=== PATIENT | female | born 1960 | race Caucasian/White ===

== ENCOUNTER 2019-03-30 05:58 | Emergency (ER) | payer BC ==
[2019-03-30] MEDS ORDERED: SODIUM CHLORIDE 0.9% 500 ML 500 ML IV STA (06:21)
[2019-03-30 06:47] LABS: Basophils # (A) 0.1 k/uL (0-0.2); Basophils % (A) 1 %; Eosinophils # (A) 0.1 k/uL (0-0.7); Eosinophils % (A) 1 %; HCT 43.6 % (34.0-46.0); HGB 14.7 gm/dL (11.4-16.0); Lymphocytes # (A) 1.2 k/uL (1.0-4.8); Lymphocytes % (A) 9 %; MCH 30.9 pg (25.0-35.0); MCHC 33.6 g/dL (31.0-37.0); MCV 91.7 fL (80.0-100.0); Mean Platelet Volume 6.5; Monocytes # (A) 0.5 k/uL (0-1.0); Monocytes % (A) 4 %; Neutrophils # (A) 11.3 k/uL (1.3-7.7); Neutrophils % (A) 85 %; Platelet Count 242 k/uL (150-450); RBC 4.75 m/uL (3.80-5.40); RDW 12.7 % (11.5-15.5); WBC 13.2 k/uL (3.8-10.6)
--- NOTE | 2019-03-30 06:50 | ED ---
GI Bleed HPI - General Source: patient, RN notes reviewed Mode of arrival: ambulatory Limitations: no limitations <Brenden Rivas - Last Filed: 03/30/19 08:04> <Poly Beasley - Last Filed: 04/03/19 23:30> - General Chief complaint: GI Bleed Stated complaint: GI Bleed Time Seen by Provider: 03/30/19 06:04 - History of Present Illness Initial comments: 58-year-old female presents emergency Department with chief complaint of rectal bleeding. Patient states that she had a large amount of bowel movement last night states that she is constipated and then she started having diarrhea. Patient states after that it was all blood. Patient states she did have a painful bowel movement which was larger nature. She denies any known hemorrhoids. Patient states that she always goes back and forth between diarrhea and constipation. Patient has had a prior hysterectomy with appendectomy. Patient states she currently has mid abdominal pain. Patient is a pack pain. Patient denies any fever, chills, dysuria, hematuria. Patient had no prior colonoscopy. Patient denies any blood thinners including taking any as pirin or Plavix. (Brenden Rivas) - Related Data Home Medications Medication Instructions Recorded Confirmed Atenolol [Tenormin] 50 mg PO BID 03/30/19 03/30/19 Cyclobenzaprine [Flexeril] 5 mg PO DAILY 03/30/19 03/30/19 Estradiol [Estradiol 0.05 MG Patch] 1 patch TRANSDERM SA 03/30/19 03/30/19 Hydrochlorothiazide [Hydrodiuril] 25 mg PO DAILY 03/30/19 03/30/19 Loratadine [Claritin] 10 mg PO DAILY 03/30/19 03/30/19 Melatonin 20 - 30 mg PO HS 03/30/19 03/30/19 Modafinil [Provigil] 100 mg PO QAM 03/30/19 03/30/19 Mometasone Furoate 1 applic TOPICAL DAILY PRN 03/30/19 03/30/19 Potassium Chloride [Klor-Con 10] 10 meq PO DAILY 03/30/19 03/30/19 Triamcinolone Acetonide [Nasacort] 1 spray EA NOSTRIL DAILY PRN 03/30/1903/30 traMADol HCL [Ultram] 50 mg PO QID PRN 03/30/19 03/30/19 Previous Rx's Medication Instructions Recorded Amoxicillin/Potassium Clav 1 tab PO Q12HR #14 tab 03/30/19 [Augmentin 875-125 Tablet] Allergies Allergy/AdvReac Type Severity Reaction Status Date / Time gluten AdvReac Unknown Verified 03/30/19 07:55 milk AdvReac GI UPSET Verified 03/30/19 07:55 Review of Systems ROS Other: All systems not noted in ROS Statement are negative. <Brenden Rivas - Last Filed: 03/30/19 08:04> ROS Other: All systems not noted in ROS Statement are negative. <Poly Beasley - Last Filed: 04/03/19 23:30> ROS Statement: Those systems with pertinent positive or pertinent negative responses have been documented in the HPI. Past Medical History Past Medical History: Hyperlipidemia, Hypertension History of Any Multi-Drug Resistant Organisms: None Reported Past Surgical History: Heart Catheterization, Hysterectomy Past Psychological History: No Psychological Hx Reported Smoking Status: Former smoker Past Alcohol Use History: None Reported Past Drug Use History: None Reported <Brenden Rivas - Last Filed: 03/30/19 08:04> General Exam Limitations: no limitations General appearance: alert, in no apparent distress Head exam: Present: atraumatic, normocephalic, normal inspection Neck exam: Present: normal inspection. Absent: tenderness, meningismus, lymphadenopathy Respiratory exam: Present: normal lung sounds bilaterally. Absent: respiratory distress, wheezes, rales, rhonchi, stridor Cardiovascular Exam: Present: regular rate, normal rhythm, normal heart sounds. Absent: systolic murmur, diastolic murmur, rubs, gallop, clicks GI/Abdominal exam: Present: soft, tenderness (Mild mid abdominal pain), normal bowel sounds. Absent: distended, guarding, rebound, rigid Back exam: Absent: CVA tenderness (R), CVA tenderness (L) Neurological exam: Present: alert, oriented X3 Skin exam: Present: warm, dry, intact, normal color. Absent: rash <Brenden Rivas - Last Filed: 03/30/19 08:04> Course Vital Signs 03/30/19 03/30/19 05:59 08:26 Temperature 97.4 F L 99.1 F Pulse Rate 87 59 L Respiratory 18 16 Rate Blood Pressure 152/81 156/93 O2 Sat by Pulse 99 97 Oximetry Medical Decision Making - Lab Data Result diagrams: 03/30/19 06:35 03/30/19 06:35 <Brenden Rivas - Last Filed: 03/30/19 08:04> - Lab Data Result diagrams: 03/30/19 06:35 03/30/19 06:35 <Poly Beasley - Last Filed: 04/03/19 23:30> - Medical Decision Making 58-year-old female presented for abdominal discomfort, rectal bleeding. The symptoms started last night. Hemoglobin is stable at this time at 14.7. Patient's pain is minimal. CT shows evidence of pain colitis. Patient has no concerning symptoms for C. diff no risk factors. Patient is afebrile. I did update patient results offered admission versus outpatient treatment. Patient prefers to be discharged she will follow-up with her primary care physician patient will be provided on-call GI and return parameters were discussed. (Brenden Rivas) I was available for consultation in the emergency department. The history and physical exam were done by the midlevel provider. I was consulted for this patients care. I reviewed the case with the midlevel provider and based on their presentation of the patient, I agree with the assessment, medical decision making and plan of care as documented. Chart was dictated using [employer] dictation software. Attempts were made to c orrect any dictation errors however some typographical errors may persist. (Poly Beasley) - Lab Data Lab Results 03/30/19 03/30/19 03/30/19 Range/Units 06:34 06:35 06:35 WBC 13.2 H (3.8-10.6) k/uL RBC 4.75 (3.80-5.40) m/uL Hgb 14.7 (11.4-16.0) gm/dL Hct 43.6 (34.0-46.0) % MCV 91.7 (80.0-100.0) fL MCH 30.9 (25.0-35.0) pg MCHC 33.6 (31.0-37.0) g/dL RDW 12.7 (11.5-15.5) % Plt Count 242 (150-450) k/uL Neutrophils % 85 % Lymphocytes % 9 % Monocytes % 4 % Eosinophils % 1 % Basophils % 1 % Neutrophils # 11.3 H (1.3-7.7) k/uL Lymphocytes # 1.2 (1.0-4.8) k/uL Monocytes # 0.5 (0-1.0) k/uL Eosinophils # 0.1 (0-0.7) k/uL Basophils # 0.1 (0-0.2) k/uL PT (9.0-12.0) sec INR (<1.2) APTT (22.0-30.0) sec Sodium 137 (137-145) mmol/L Potassium 3.5 (3.5-5.1) mmol/L Chloride 99 (98-107) mmol/L Carbon Dioxide 29 (22-30) mmol/L Anion Gap 9 mmol/L BUN 8 (7-17) mg/dL Creatinine 0.74 (0.52-1.04) mg/dL Est GFR (CKD-EPI)AfAm >90 (>60 ml/min/1.73 sqM) Est GFR (CKD-EPI)NonAf 90 (>60 ml/min/1.73 sqM) Glucose 131 H (74-99) mg/dL Plasma Lactic Acid Kahlil (0.7-2.0) mmol/L Calcium 10.2 (8.4-10.2) mg/dL Total Bilirubin 0.6 (0.2-1.3) mg/dL AST 22 (14-36) U/L ALT 28 (9-52) U/L Alkaline Phosphatase 78 (38-126) U/L Total Protein 7.8 (6.3-8.2) g/dL Albumin 4.6 (3.5-5.0) g/dL Amylase 65 (30-110) U/L Lipase 106 (23-300) U/L Urine Color Yellow Urine Appearance Cloudy H (Clear) Urine pH 7.0 (5.0-8.0) Ur Specific [place] 1.018 (1.001-1.035) Urine Protein Trace H (Negative) Urine Glucose (UA) Negative (Negative) Urine Ketones Negative (Negative) Urine Blood Negative (Negative) Urine Nitrite Negative (Negative) Urine Bilirubin Negative (Negative) Urine Urobilinogen <2.0 (<2.0) mg/dL Ur Leukocyte Esterase Negative (Negative) Urine WBC 3 (0-5) /hpf Ur Squamous Epith Cells 2 (0-4) /hpf Amorphous Sediment Occasional H (None) /hpf Hyaline Casts 7 H (0-2) /lpf Urine Mucus Rare H (None) /hpf 03/30/19 03/30/19 Range/Units 06:35 06:35 WBC (3.8-10.6) k/uL RBC (3.80-5.40) m/uL Hgb (11.4-16.0) gm/dL Hct (34.0-46.0) % MCV (80.0-100.0) fL MCH (25.0-35.0) pg MCHC (31.0-37.0) g/dL RDW (11.5-15.5) % Plt Count (150-450) k/uL Neutrophils % % Lymphocytes % % Monocytes % % Eosinophils % % Basophils % % Neutrophils # (1.3-7.7) k/uL Lymphocytes # (1.0-4.8) k/uL Monocytes # (0-1.0) k/uL Eosinophils # (0-0.7) k/uL Basophils # (0-0.2) k/uL PT 10.3 (9.0-12.0) sec INR 1.0 (<1.2) APTT 25.4 (22.0-30.0) sec Sodium (137-145) mmol/L Potassium (3.5-5.1) mmol/L Chloride (98-107) mmol/L Carbon Dioxide (22-30) mmol/L Anion Gap mmol/L BUN (7-17) mg/dL Creatinine (0.52-1.04) mg/dL Est GFR (CKD-EPI)AfAm (>60 ml/min/1.73 sqM) Est GFR (CKD-EPI)NonAf (>60 ml/min/1.73 sqM) Glucose (74-99) mg/dL Plasma Lactic Acid Kahlil 1.1 (0.7-2.0) mmol/L Calcium (8.4-10.2) mg/dL Total Bilirubin (0.2-1.3) mg/dL AST (14-36) U/L ALT (9-52) U/L Alkaline Phosphatase (38-126) U/L Total Protein (6.3-8.2) g/dL Albumin (3.5-5.0) g/dL Amylase (30-110) U/L Lipase (23-300) U/L Urine Color Urine Appearance (Clear) Urine pH (5.0-8.0) Ur Specific [place] (1.001-1.035) Urine Protein (Negative) Urine Glucose (UA) (Negative) Urine Ketones (Negative) Urine Blood (Negative) Urine Nitrite (Negative) Urine Bilirubin (Negative) Urine Urobilinogen (<2.0) mg/dL Ur Leukocyte Esterase (Negative) Urine WBC (0-5) /hpf Ur Squamous Epith Cells (0-4) /hpf Amorphous Sediment (None) /hpf Hyaline Casts (0-2) /lpf Urine Mucus (None) /hpf Disposition Is patient prescribed a controlled substance at d/c from ED?: No Time of Disposition: 08:06 <Brenden Rivas - Last Filed: 03/30/19 08:04> <Poly Beasley - Last Filed: 04/03/19 23:30> Clinical Impression: Pancolitis, Rectal bleeding Disposition: HOME SELF-CARE Condition: Stable Instructions (If sedation given, give patient instructions): Colitis (ED) Additional Instructions: Please return to the Emergency Department if symptoms worsen or any other concerns. Please follow-up for colonoscopy. Prescriptions: Amoxicillin/Potassium Clav [Augmentin 875-125 Tablet] 1 tab PO Q12HR #14 tab Referrals: Risa Bates DO [Primary Care Provider] - 1-2 days Oneil Roy MD [STAFF PHYSICIAN] - 1-2 days
[2019-03-30 07:00] LABS: ALT 28 U/L (9-52); AST 22 U/L (14-36); African American GFR (CKD) >90 (>60 ml/min/1.73 sqM); Albumin 4.6 g/dL (3.5-5.0); Alkaline Phosphatase 78 U/L (38-126); Amylase 65 U/L (30-110); Anion Gap 9 mmol/L; Blood Urea Nitrogen 8 mg/dL (7-17); Calcium 10.2 mg/dL (8.4-10.2); Carbon Dioxide 29 mmol/L (22-30); Chloride 99 mmol/L (98-107); Glucose 131 mg/dL (74-99); Potassium 3.5 mmol/L (3.5-5.1); Sodium 137 mmol/L (137-145); Total Bilirubin 0.6 mg/dL (0.2-1.3); Total Protein 7.8 g/dL (6.3-8.2)
[2019-03-30 07:01] LABS: Amorphous Sediment,Urine Occasional /hpf; Appearance,Urine Cloudy (Clear); Bilirubin,Urine Negative (Negative); Blood,Urine Negative (Negative); Color,Urine Yellow; Glucose,Urine (UA) Negative (Negative); Hyaline Casts,Urine 7 /lpf (0-2); Ketones,Urine Negative (Negative); Leukocyte Esterase,Urine Negative (Negative); Mucus,Urine Rare /hpf; Nitrite,Urine Negative (Negative); Protein,Urine Trace (Negative); Specific Gravity,Urine 1.018 (1.001-1.035); Squamous Epithelial Cell,Urine 2 /hpf (0-4); Urobilinogen,Urine <2.0 mg/dL (<2.0)
[2019-03-30 07:10] LABS: Partial Thromboplastin Time 25.4 sec (22.0-30.0); Prothrombin Time 10.3 sec (9.0-12.0)
--- NOTE | 2019-03-30 07:27 | CT ---
EXAMINATION TYPE: CT abdomen pelvis w con DATE OF EXAM: 03/30/2019 HISTORY: Mid to lower abdominal pain, hematochezia CT DLP: 1285.2mGycm Automated Exposure Control for Dose Reduction was Utilized. CONTRAST: CT scan of the abdomen and pelvis is performed with IV Contrast, patient injected with 100 ml mL of I sovue 300. COMPARISON: None. FINDINGS: LUNG BASES: No significant abnormality is appreciated. Few coronary artery calcifications are evident . LIVER/GB: Geographic hypoattenuation near the fissure for the falciform ligament most commonly repres ent focal fatty infiltration. Remainder the liver is slightly low density but does not meet criteria for a diffuse hepatic steatosis. Gallbladder slightly contracted. No radiopaque calculi are seen.. PANCREAS: No significant abnormality is seen. SPLEEN: No significant abnormality is seen. ADRENALS: No significant abnormality is seen. KIDNEYS: Kidneys have a lobulated contour and enhance and excrete symmetrically, without hydronephros is. Lobulated contour may be related to persistent lobulation or multifocal scarring.. BOWEL: Mild pericolonic fat stranding is seen throughout the entirety of the colon with subtle coloni c wall thickening. The vasa recta engorgement is seen. Bowel wall thickening extends to the rectum. N o LYMPH NODES: No greater than 1cm abdominal or pelvic lymph nodes are appreciated. OSSEOUS STRUCTURES: No significant abnormality is seen. Mild degenerative changes of the thoracic spi ne and lumbosacral junction. OTHER: Tiny fat filled umbilical hernia. IMPRESSION: Acute uncomplicated pancolitis. Given the diffuse involvement C. Difficile could be consi dered. No pneumoperitoneum or pericolonic abscess.
[2019-03-30] MEDS ORDERED: ONDANSETRON 4 MG ODT STARTER PACK 2 TAB BTL PO STA (08:07)
[2019-03-30] MEDS ORDERED: ACET/COD 300 MG/30 MG STARTER PACK 6 TAB BTL PO STA (08:07)
[2019-03-30 08:28] VITALS: BP 156/93; PULSE 59; RESP 16; TEMP 99.1
== END 2019-03-30 08:28 | disposition home or self-care (01) ==
LOC: EC 05:58
DX: K62.5 Hemorrhage of anus and rectum (principal); K51.00 Ulcerative (chronic) pancolitis without complications; I10 Essential (primary) hypertension; Z79.899 Other long term (current) drug therapy; Z91.011 Allergy to milk products; Z91.018 Allergy to other foods; Z87.891 Personal history of nicotine dependence; Z90.710 Acquired absence of both cervix and uterus
CPT/HCPCS: 36415; 80053; 82150; 83605; 83690; 85025; 85610; 85730; 81001; 74177; 99284; 96360; S0119; Q9967